=== PATIENT | male | born 1935 | race Caucasian/White ===

== ENCOUNTER 2020-08-19 15:04 | Inpatient (IN) | payer MEDICARE ==
[~2020-08-19] VITALS: Ht 182.9 cm; Wt 80.1 kg
[~2020-08-19 15:04] MED LIST: atropine 0.1mg/ml 10ml syringe ONE; calcium chloride 100 MG/1 ML inj IV ONE; dextrose 50%-water 50ml dispensing syringe IV ONE; epiNEPHrine 0.1mg/ml 10ml syringe ONE
--- NOTE | 2020-08-19 15:18 | NUR ---
PT'S - KYM DIETRICH: [phone] (HOME); [phone] (CELL)
[2020-08-19 16:15] LABS: BASOPHILS % (AUTO) 0.4 % (0-1); EOSINOPHILS # (AUTO) 0.1 X10'3 (0-0.9); EOSINOPHILS % (AUTO) 0.5 % (0-6); HEMATOCRIT 35.6 % (42.0-52.0); HEMOGLOBIN 11.8 g/dl (14.0-17.9); LYMPHOCYTES # (AUTO) 0.9 X10'3 (1.1-4.8); LYMPHOCYTES % (AUTO) 7.3 % (21-51); MEAN CORPUSCULAR HEMOGLOBIN 30.3 PG (27.0-31.0); MEAN CORPUSCULAR HGB CONC 33.1 g/dL (33.0-36.5); MEAN CORPUSCULAR VOLUME 91.6 FL (78-98); MEAN PLATELET VOLUME 6.9 FL (7.4-10.4); MONOCYTES # (AUTO) 1.5 X10'3 (0-0.9); MONOCYTES % (AUTO) 11.6 % (2-12); NEUTROPHILS # (AUTO) 10.4 X10'3 (1.8-7.7); NEUTROPHILS % (AUTO) 80.2 % (42-75); PLATELET COUNT 339 X10'3 (140-440); RED BLOOD COUNT 3.89 X10'6 (4.70-6.10); RED CELL DISTRIBUTION WIDTH 13.8 % (11.5-14.5); WHITE BLOOD COUNT 12.9 X10'3 (4.5-11.0)
[2020-08-19 16:23] LABS: ALANINE AMINOTRANSFERASE 94 U/L (12-78); ALBUMIN 2.8 G/DL (3.4-5.0); ALBUMIN/GLOBULIN RATIO 0.7 (1.1-1.5); ALKALINE PHOSPHATASE 186 IU/L (46-116); ANION GAP 5 (8-16); ASPARTATE AMINO TRANSFERASE 55 U/L (10-37); BILIRUBIN,TOTAL 0.4 MG/DL (0.1-1.0); BLOOD UREA NITROGEN 25 MG/DL (7-18); BUN/CREATININE RATIO 19.1 (5.4-32.0); CALCIUM 8.8 MG/DL (8.5-10.1); CHLORIDE 98 MMOL/L (99-107); CREATININE 1.31 MG/DL (0.60-1.10); GLUCOSE 205 MG/DL (70-104); POTASSIUM 4.7 MMOL/L (3.5-5.1); SODIUM 132 MMOL/L (135-145); TOTAL CARBON DIOXIDE 29.5 MMOL/L (24-32); eGFR 52 ML/MIN
[2020-08-19] MEDS ORDERED: CefTRIAXone 2gm/D5W 50ml BAG 50 ML IV ONE (17:10)
[2020-08-19] MEDS ORDERED: heparin 10,000 units/1 ML INJ IV ONE ×2 (17:10→21:30)
[2020-08-19] MEDS ORDERED: dexamethasone sod phosphate 10mg/ml inj IV STA (17:18)
[2020-08-19] MEDS ORDERED: azithromycin/NS 500mg/250ml 250 ML IV ONE (17:20)
[2020-08-19] MEDS ORDERED: METF-950 PO (17:20)
[2020-08-19] MEDS ORDERED: BENA20TA82 PO (17:20)
[2020-08-19] MEDS ORDERED: ALBU6.7H9 IH (17:20)
[2020-08-19] MEDS ORDERED: FURO20TA4 PO (17:20)
[2020-08-19] MEDS ORDERED: APIX5TAB3 PO (17:20)
[2020-08-19] MEDS ORDERED: SIMV-45 PO (17:20)
[2020-08-19] MEDS ORDERED: diltiazem 5mg/ml 5ml inj. IV ONE (17:40)
[2020-08-19 18:01] LABS: PARTIAL THROMBOPLASTIN TIME 33 SECONDS (22-32)
[2020-08-19 18:20] LABS: C-REACTIVE PROTEIN 16.07 MG/DL (0.0-0.5); LACTATE DEHYDROGENASE 409 U/L (85-227)
[2020-08-19 18:23] LABS: FERRITIN 373 NG/ML (26-388)
[2020-08-19] MEDS: heparin 10,000 units/1 ML INJ IV PRN (19:09)
[2020-08-19] MEDS: heparin 25,000 UNIT/250ml bag 250 ML IV SCH (19:10)
[2020-08-19 19:19] LABS: D-DIMER 4.93 MG/L FEU (0-0.50)
[2020-08-19] MEDS ORDERED: iohexol 350MG/ML 100ml bottle IV ONE (19:36)
[2020-08-19] MEDS: MESSAGE TO NURSING PO SCH (19:37)
[2020-08-19] MEDS ORDERED: temazepam 15mg capsule PO PRN (21:00)
[2020-08-19] MEDS ORDERED: magnesium 2GM in 50ml NS 50 ML IV PRN (21:15)
[2020-08-19] MEDS ORDERED: potassium Cl 20 mEq SR tablet PO PRN ×2 (21:15)
[2020-08-19] MEDS ORDERED: magnesium 4gm in 100ml NS 100 ML IV PRN (21:15)
[2020-08-19] MEDS ORDERED: potassium CL 10mEq/100ml bag 100 ML IV PRN ×2 (21:15)
[2020-08-19] MEDS ORDERED: acetaminophen 325mg tablet PO PRN ×2 (21:15)
[2020-08-19] MEDS ORDERED: HYDROcodone/acetaminophen 10/325mg tab PO PRN (21:15)
[2020-08-19] MEDS ORDERED: magnesium hydroxide 30ml (MOM) UD suspension PO PRN (21:15)
[2020-08-19] MEDS ORDERED: ondansetron/PF 4mg/2ml inj IV PRN (21:15)
[2020-08-19] MEDS ORDERED: HYDROcodone/acetaminophen 5mg/325mg tablet PO PRN (21:15)
[2020-08-19] MEDS ORDERED: magnesium Cl slow-release 64mg tablet PO PRN (21:15)
[2020-08-19] MEDS ORDERED: bisacodyl 10mg suppository rectal RC PRN (21:15)
[2020-08-19] MEDS ORDERED: morphine 2 MG/ML inj. syringe IV PRN ×2 (21:15)
[2020-08-19] MEDS ORDERED: heparin 25,000 UNIT/250ml bag 250 ML IV SCH (21:30)
[2020-08-19] MEDS ORDERED: heparin 10,000 units/1 ML INJ IV PRN (21:30)
[2020-08-19] MEDS: normal saline 1000ml 1,000 ML IV SCH (22:36)
[2020-08-19 22:50] LABS: HIV ANTIBODY 1&2 RAPID NON-REACTIVE (Neg)
[2020-08-20 02:00] VITALS: BP 110/66
[2020-08-20] MEDS: heparin 25,000 UNIT/250ml bag 250 ML IV SCH ×3 (02:40→17:04)
[2020-08-20] MEDS: heparin 10,000 units/1 ML INJ IV PRN ×2 (02:41→16:42)
[2020-08-20 04:35] LABS: BASOPHILS % (AUTO) 0.3 % (0-1); EOSINOPHILS % (AUTO) 0 % (0-6); HEMATOCRIT 29.8 % (42.0-52.0); HEMOGLOBIN 9.9 g/dl (14.0-17.9); LYMPHOCYTES # (AUTO) 0.5 X10'3 (1.1-4.8); LYMPHOCYTES % (AUTO) 6.2 % (21-51); MEAN CORPUSCULAR HEMOGLOBIN 30.2 PG (27.0-31.0); MEAN CORPUSCULAR HGB CONC 33.1 g/dL (33.0-36.5); MEAN CORPUSCULAR VOLUME 91.3 FL (78-98); MONOCYTES # (AUTO) 0.6 X10'3 (0-0.9); MONOCYTES % (AUTO) 7.3 % (2-12); NEUTROPHILS # (AUTO) 6.6 X10'3 (1.8-7.7); NEUTROPHILS % (AUTO) 86.2 % (42-75); PLATELET COUNT 262 X10'3 (140-440); RED BLOOD COUNT 3.26 X10'6 (4.70-6.10); RED CELL DISTRIBUTION WIDTH 13.9 % (11.5-14.5); WHITE BLOOD COUNT 7.7 X10'3 (4.5-11.0)
[2020-08-20 04:51] LABS: ALANINE AMINOTRANSFERASE 67 U/L (12-78); ALBUMIN 2.1 G/DL (3.4-5.0); ALBUMIN/GLOBULIN RATIO 0.6 (1.1-1.5); ALKALINE PHOSPHATASE 147 IU/L (46-116); ANION GAP 7 (8-16); ASPARTATE AMINO TRANSFERASE 29 U/L (10-37); BILIRUBIN,TOTAL 0.2 MG/DL (0.1-1.0); BLOOD UREA NITROGEN 23 MG/DL (7-18); BUN/CREATININE RATIO 20.7 (5.4-32.0); CALCIUM 7.4 MG/DL (8.5-10.1); CHLORIDE 103 MMOL/L (99-107); CREATININE 1.11 MG/DL (0.60-1.10); GLUCOSE 294 MG/DL (70-104); POTASSIUM 4.6 MMOL/L (3.5-5.1); SODIUM 135 MMOL/L (135-145); TOTAL CARBON DIOXIDE 24.9 MMOL/L (24-32); TOTAL PROTEIN 5.4 G/DL (6.4-8.2); eGFR 63 ML/MIN
[2020-08-20 04:53] LABS: CHOLESTEROL 80 MG/DL (0-200); HDL CHOLESTEROL 27 MG/DL (35-60); LDL CHOLESTEROL 46 MG/DL (50-100); MAGNESIUM 1.8 MG/DL (1.5-2.4); TRIGLYCERIDES 46 MG/DL (20-135)
--- NOTE | 2020-08-20 06:58 | NUR ---
Patient in room PCU 3020. I have received report from King ROCHE and had the opportunity to ask questions and assume patient care.
--- NOTE | 2020-08-20 07:02 | NUR ---
Problems reprioritized. Patient report given, questions answered & plan of care reviewed. Safety measures in place, bed in low and locked position. Call light and personal items within reach. Will continue to monitor for remainder of shift.
--- NOTE | 2020-08-20 07:57 | NUR ---
[place] [id number] and has IVF running at 100. No new orders at this time.
[2020-08-20] MEDS: metoprolol tartrate 12.5mg (1/2 tablet) PO SCH ×2 (08:00→20:00)
[2020-08-20] MEDS: K and/or MAG REPLACEMENT MC SCH ×2 (08:00→20:00)
[2020-08-20] MEDS ORDERED: apixaban 5mg tablet PO SCH (08:00)
[2020-08-20] MEDS: atorvastatin 20mg tablet PO SCH (08:55)
[2020-08-20] MEDS: lisinopril 20mg tablet PO SCH (08:55)
[2020-08-20] MEDS: CefTRIAXone/D5W-Rocephin 1gm 50 ML IV SCH (08:55)
[2020-08-20 09:00] VITALS: BP 115/64
[2020-08-20] MEDS: normal saline 1000ml 1,000 ML IV SCH (09:11)
[2020-08-20] MEDS ORDERED: heparin 10,000 units/1 ML INJ IV PRN (09:40)
[2020-08-20] MEDS: MESSAGE TO NURSING PO SCH (10:00)
--- NOTE | 2020-08-20 12:52 | NUR ---
Pt refusing skin check stating his skin is okay.
[2020-08-20] MEDS: mag hydrox/Alum hydrox/simeth 30ml oral suspension PO PRN ×3 (13:32→22:45)
[2020-08-20] MEDS ORDERED: heparin 10,000 units/1 ML INJ IV ONE ×2 (13:45)
[2020-08-20 16:37] VITALS: BP 124/77
[2020-08-20] MEDS: azithromycin/NS 500mg/250ml 250 ML IV SCH (16:51)
--- NOTE | 2020-08-20 18:30 | NUR ---
Patient in room PCU 3020. I have received report from KALEY Rust and had the opportunity to ask questions and assume patient care. Patient resting in bed, no signs of distress. Safety measures in place, bed in low and locked position. Call light and personal items within reach. Will continue to monitor throughout shift.
--- NOTE | 2020-08-20 18:43 | NUR ---
Problems reprioritized. Patient report given, questions answered & plan of care reviewed with King ROCHE.
[2020-08-20] MEDS ORDERED: dextrose 50%-water 50ml dispensing syringe IV PRN ×2 (20:45)
[2020-08-20] MEDS ORDERED: dextrose ORAL solution 15 GM/59 ML bottle PO PRN ×2 (20:45)
[2020-08-20] MEDS ORDERED: glucagon, human recombinant 1mg kit SUBCUT PRN (20:45)
[2020-08-20] MEDS ORDERED: MESSAGE TO PHARMACY PO ONE (20:45)
[2020-08-20 22:00] VITALS: BP 101/54
[2020-08-20 22:06] LABS: HEMOGLOBIN A1C 7.7 % (4.5-6.2)
[2020-08-20] MEDS: lactobacillus rhamnosus 10,000 MMU CELLS/CAPSULE PO SCH (22:19)
[2020-08-20] MEDS: insulin glargine (Lantus) pen - multi-dose SQ SCH (22:48)
--- NOTE | 2020-08-20 23:44 | NUR ---
Ptt 56, therapeutic level, no rate change.
[2020-08-21 02:00] VITALS: BP 113/80
--- NOTE | 2020-08-21 03:29 | NUR ---
Paged RT. RE James Shaffer RM [id number]. Patient requesting PRN breathing treatment.
[2020-08-21] MEDS: heparin 25,000 UNIT/250ml bag 250 ML IV SCH ×2 (05:17→08:05)
[2020-08-21 06:00] VITALS: BP 110/50
[2020-08-21 06:47] LABS: BASOPHILS % (AUTO) 0.4 % (0-1); EOSINOPHILS # (AUTO) 0.1 X10'3 (0-0.9); EOSINOPHILS % (AUTO) 1.1 % (0-6); HEMATOCRIT 31.7 % (42.0-52.0); HEMOGLOBIN 10.6 g/dl (14.0-17.9); LYMPHOCYTES # (AUTO) 1.6 X10'3 (1.1-4.8); LYMPHOCYTES % (AUTO) 13.8 % (21-51); MEAN CORPUSCULAR HEMOGLOBIN 30.5 PG (27.0-31.0); MEAN CORPUSCULAR HGB CONC 33.4 g/dL (33.0-36.5); MEAN CORPUSCULAR VOLUME 91.3 FL (78-98); MEAN PLATELET VOLUME 7.2 FL (7.4-10.4); MONOCYTES # (AUTO) 1.2 X10'3 (0-0.9); MONOCYTES % (AUTO) 10.2 % (2-12); NEUTROPHILS # (AUTO) 8.7 X10'3 (1.8-7.7); NEUTROPHILS % (AUTO) 74.5 % (42-75); PLATELET COUNT 344 X10'3 (140-440); RED BLOOD COUNT 3.47 X10'6 (4.70-6.10); RED CELL DISTRIBUTION WIDTH 13.9 % (11.5-14.5); WHITE BLOOD COUNT 11.7 X10'3 (4.5-11.0)
--- NOTE | 2020-08-21 06:56 | NUR ---
Problems reprioritized. Patient report given, questions answered & plan of care reviewed with KALEY Smith. Patient resting in bed. No concerns. Heparin gtt running at 1500. Safety measures in place, bed in low and locked position. Call light and personal items within reach. Will continue to monitor for remainder of shift.
[2020-08-21 07:04] LABS: ALANINE AMINOTRANSFERASE 73 U/L (12-78); ALBUMIN 2.4 G/DL (3.4-5.0); ALBUMIN/GLOBULIN RATIO 0.6 (1.1-1.5); ALKALINE PHOSPHATASE 153 IU/L (46-116); ANION GAP 8 (8-16); ASPARTATE AMINO TRANSFERASE 32 U/L (10-37); BILIRUBIN,TOTAL 0.2 MG/DL (0.1-1.0); BLOOD UREA NITROGEN 26 MG/DL (7-18); BUN/CREATININE RATIO 22.6 (5.4-32.0); CALCIUM 8.5 MG/DL (8.5-10.1); CHLORIDE 103 MMOL/L (99-107); CREATININE 1.15 MG/DL (0.60-1.10); GLUCOSE 205 MG/DL (70-104); MAGNESIUM 2.2 MG/DL (1.5-2.4); POTASSIUM 5.1 MMOL/L (3.5-5.1); SODIUM 139 MMOL/L (135-145); TOTAL CARBON DIOXIDE 28.3 MMOL/L (24-32); TOTAL PROTEIN 6.1 G/DL (6.4-8.2); eGFR 61 ML/MIN
[2020-08-21] MEDS: lactobacillus rhamnosus 10,000 MMU CELLS/CAPSULE PO SCH ×2 (07:36→19:35)
[2020-08-21] MEDS: metoprolol tartrate 12.5mg (1/2 tablet) PO SCH ×2 (07:37→19:36)
[2020-08-21] MEDS: DEXAMETHASONE 6 MG TABLET PO SCH (07:37)
[2020-08-21] MEDS: atorvastatin 20mg tablet PO SCH (07:37)
[2020-08-21] MEDS: CefTRIAXone/D5W-Rocephin 1gm 50 ML IV SCH (07:38)
[2020-08-21] MEDS: heparin 10,000 units/1 ML INJ IV PRN ×2 (07:50→22:29)
[2020-08-21] MEDS: K and/or MAG REPLACEMENT MC SCH ×2 (08:00→20:00)
[2020-08-21] MEDS: mag hydrox/Alum hydrox/simeth 30ml oral suspension PO PRN (09:10)
[2020-08-21] MEDS: insulin Lispro (HumaLOG) vial - multi-dose SQ SCH ×3 (09:19→20:30)
[2020-08-21] MEDS: MESSAGE TO NURSING PO SCH (10:00)
--- NOTE | 2020-08-21 10:01 | NUR ---
DM consult: A1c 7.7%. DM ed deferred d/t well controlled DM considering geriatric age, will follow up for initial assessment on 08/24. Addendum: 08/21/20 at [address] Amended: Links added. Addendum: 08/21/20 at [address] I have reviewed and agree with note by Cycle Specialist. Bev Amor RD
[2020-08-21 11:00] VITALS: BP 125/59
[2020-08-21] MEDS: lisinopril 20mg tablet PO SCH (12:29)
[2020-08-21 15:00] VITALS: BP 129/48
--- NOTE | 2020-08-21 16:20 | NUR ---
Patient in room PCU 3020. I have received report from King ROCHE and had the opportunity to ask questions and assume patient care.
[2020-08-21] MEDS: azithromycin/NS 500mg/250ml 250 ML IV SCH (16:21)
--- NOTE | 2020-08-21 17:29 | NUR ---
PAGER ID: [phone] MESSAGE: Re: Jam Marks. Room: 3020. Pt takes famotidine 20mg PO every morning. Can I order protonix PO 20mg daily for Pt? -[facility] #[id number] Dr. Patrick paged concerning Pt's med rec.
[2020-08-21 17:30] VITALS: BP 131/75
--- NOTE | 2020-08-21 18:27 | NUR ---
Problems reprioritized. Patient report given, questions answered & plan of care reviewed with Celina ROCHE.
--- NOTE | 2020-08-21 18:44 | NUR ---
Patient in room PCU 3020. I have received report from KALEY Smith and had the opportunity to ask questions and assume patient care.
[2020-08-21] MEDS: insulin glargine (Lantus) pen - multi-dose SQ SCH (22:27)
[2020-08-21 22:39] VITALS: BP 140/76
[2020-08-22 02:10] VITALS: BP 138/76
--- NOTE | 2020-08-22 04:24 | NUR ---
Pt c/o constant dry cough. Has not been sleeping well tonight. Paged Dr. Calvert and received order for Tessalon 200mg PO TID. Order placed.
[2020-08-22] MEDS: benzonatate 100mg capsule PO PRN ×2 (05:37→20:14)
[2020-08-22 05:40] VITALS: BP 158/76
[2020-08-22 06:00] VITALS: BP 125/67
[2020-08-22 06:07] LABS: BASOPHILS % (AUTO) 0.3 % (0-1); EOSINOPHILS % (AUTO) 0 % (0-6); HEMATOCRIT 31.2 % (42.0-52.0); HEMOGLOBIN 10.4 g/dl (14.0-17.9); LYMPHOCYTES # (AUTO) 1.2 X10'3 (1.1-4.8); LYMPHOCYTES % (AUTO) 8.5 % (21-51); MEAN CORPUSCULAR HEMOGLOBIN 30.1 PG (27.0-31.0); MEAN CORPUSCULAR HGB CONC 33.2 g/dL (33.0-36.5); MEAN CORPUSCULAR VOLUME 90.5 FL (78-98); MEAN PLATELET VOLUME 7.3 FL (7.4-10.4); MONOCYTES # (AUTO) 1.5 X10'3 (0-0.9); NEUTROPHILS # (AUTO) 11.3 X10'3 (1.8-7.7); NEUTROPHILS % (AUTO) 80.2 % (42-75); PLATELET COUNT 345 X10'3 (140-440); RED BLOOD COUNT 3.45 X10'6 (4.70-6.10); WHITE BLOOD COUNT 14.1 X10'3 (4.5-11.0)
--- NOTE | 2020-08-22 06:25 | NUR ---
Problems reprioritized. Patient report given, questions answered & plan of care reviewed with KALEY Smith.
--- NOTE | 2020-08-22 06:25 | NUR ---
Patient in room PCU 3020. I have received report from Celina ROCHE and had the opportunity to ask questions and assume patient care.
[2020-08-22 06:26] LABS: ALANINE AMINOTRANSFERASE 69 U/L (12-78); ALBUMIN 2.5 G/DL (3.4-5.0); ALBUMIN/GLOBULIN RATIO 0.7 (1.1-1.5); ALKALINE PHOSPHATASE 151 IU/L (46-116); ANION GAP 6 (8-16); ASPARTATE AMINO TRANSFERASE 27 U/L (10-37); BILIRUBIN,TOTAL 0.2 MG/DL (0.1-1.0); BLOOD UREA NITROGEN 27 MG/DL (7-18); BUN/CREATININE RATIO 24.3 (5.4-32.0); CHLORIDE 106 MMOL/L (99-107); CREATININE 1.11 MG/DL (0.60-1.10); GLUCOSE 91 MG/DL (70-104); MAGNESIUM 2.5 MG/DL (1.5-2.4); POTASSIUM 4.7 MMOL/L (3.5-5.1); SODIUM 140 MMOL/L (135-145); TOTAL CARBON DIOXIDE 27.6 MMOL/L (24-32); TOTAL PROTEIN 6.1 G/DL (6.4-8.2); eGFR 63 ML/MIN
[2020-08-22] MEDS: CefTRIAXone/D5W-Rocephin 1gm 50 ML IV SCH (08:00)
[2020-08-22] MEDS: lactobacillus rhamnosus 10,000 MMU CELLS/CAPSULE PO SCH ×2 (08:00→20:19)
[2020-08-22] MEDS: K and/or MAG REPLACEMENT MC SCH ×2 (08:00→20:00)
[2020-08-22] MEDS: pantoprazole 40mg Tablet.DR PO SCH (08:01)
[2020-08-22] MEDS: DEXAMETHASONE 6 MG TABLET PO SCH (08:01)
[2020-08-22] MEDS: atorvastatin 20mg tablet PO SCH (08:01)
[2020-08-22] MEDS: metoprolol tartrate 12.5mg (1/2 tablet) PO SCH ×2 (08:01→20:19)
[2020-08-22] MEDS: lisinopril 20mg tablet PO SCH (08:01)
[2020-08-22] MEDS: heparin 25,000 UNIT/250ml bag 250 ML IV SCH (08:13)
[2020-08-22] MEDS: insulin Lispro (HumaLOG) vial - multi-dose SQ SCH ×3 (09:29→20:08)
[2020-08-22] MEDS: apixaban 5mg tablet PO SCH ×2 (11:06→20:19)
[2020-08-22 11:39] LABS: D-DIMER 2.27 MG/L FEU (0-0.50)
--- NOTE | 2020-08-22 12:19 | NUR ---
Spoke with Salvador Nielsen concerning Pt's COVID test, which is negative. Pt can be taken off of isolation per Dr. Swartz.
--- NOTE | 2020-08-22 13:02 | NUR ---
Per Dr. Gaston; Eliquis 5mg PO administered at 1106, Heparin drip turned off at 1230
[2020-08-22 15:00] VITALS: BP 142/64
[2020-08-22] MEDS: azithromycin/NS 500mg/250ml 250 ML IV SCH (17:07)
[2020-08-22 18:00] VITALS: BP 123/67
--- NOTE | 2020-08-22 18:30 | NUR ---
Problems reprioritized. Patient report given, questions answered & plan of care reviewed with Radha.
--- NOTE | 2020-08-22 18:35 | NUR ---
Patient in room PCU 3020. I have received report from Luis ROCHE and had the opportunity to ask questions and assume patient care.
[2020-08-22 22:00] VITALS: BP 138/66
[2020-08-22] MEDS: insulin glargine (Lantus) pen - multi-dose SQ SCH (22:16)
[2020-08-23] VITALS (7 sets, daily range): BP systolic 113–171; BP diastolic 48–88
--- NOTE | 2020-08-23 04:16 | NUR ---
3020A Jam Marks. Can I get a PRN breathing treatment for this patient? He is SOB. Thank you. Valerie ROCHE Ext [phone]
[2020-08-23] MEDS: ipratropium/albuterol 3ml nebule NEB PRN ×4 (04:42→20:00)
--- NOTE | 2020-08-23 06:21 | NUR ---
Problems reprioritized. Patient report given, questions answered & plan of care reviewed with Luis ROCHE.
--- NOTE | 2020-08-23 06:25 | NUR ---
Patient in room PCU 3020. I have received report from Radha ROCHE and had the opportunity to ask questions and assume patient care.
[2020-08-23 06:33] LABS: BASOPHILS % (AUTO) 0.3 % (0-1); EOSINOPHILS % (AUTO) 0.2 % (0-6); HEMOGLOBIN 11.4 g/dl (14.0-17.9); LYMPHOCYTES # (AUTO) 1.2 X10'3 (1.1-4.8); LYMPHOCYTES % (AUTO) 7.1 % (21-51); MEAN CORPUSCULAR HEMOGLOBIN 30.4 PG (27.0-31.0); MEAN CORPUSCULAR HGB CONC 33.6 g/dL (33.0-36.5); MEAN CORPUSCULAR VOLUME 90.5 FL (78-98); MEAN PLATELET VOLUME 7.2 FL (7.4-10.4); MONOCYTES # (AUTO) 1.7 X10'3 (0-0.9); MONOCYTES % (AUTO) 10.2 % (2-12); NEUTROPHILS # (AUTO) 13.9 X10'3 (1.8-7.7); NEUTROPHILS % (AUTO) 82.2 % (42-75); PLATELET COUNT 332 X10'3 (140-440); RED BLOOD COUNT 3.76 X10'6 (4.70-6.10); WHITE BLOOD COUNT 16.9 X10'3 (4.5-11.0)
[2020-08-23 06:46] LABS: ALANINE AMINOTRANSFERASE 58 U/L (12-78); ALBUMIN 2.7 G/DL (3.4-5.0); ALBUMIN/GLOBULIN RATIO 0.7 (1.1-1.5); ALKALINE PHOSPHATASE 150 IU/L (46-116); ANION GAP 9 (8-16); ASPARTATE AMINO TRANSFERASE 19 U/L (10-37); BILIRUBIN,TOTAL 0.3 MG/DL (0.1-1.0); BLOOD UREA NITROGEN 25 MG/DL (7-18); BUN/CREATININE RATIO 22.1 (5.4-32.0); CHLORIDE 103 MMOL/L (99-107); CREATININE 1.13 MG/DL (0.60-1.10); GLUCOSE 79 MG/DL (70-104); MAGNESIUM 2.2 MG/DL (1.5-2.4); POTASSIUM 4.1 MMOL/L (3.5-5.1); SODIUM 141 MMOL/L (135-145); TOTAL CARBON DIOXIDE 29.3 MMOL/L (24-32); TOTAL PROTEIN 6.7 G/DL (6.4-8.2); eGFR 62 ML/MIN
--- NOTE | 2020-08-23 07:00 | NUR ---
Pt's morning blood sugar 69. pt not symptomatic. White juice administered. Will recheck blood sugar in 20 minutes.
[2020-08-23] MEDS: pantoprazole 40mg Tablet.DR PO SCH (07:30)
[2020-08-23] MEDS: lactobacillus rhamnosus 10,000 MMU CELLS/CAPSULE PO SCH ×3 (07:30→22:27)
[2020-08-23] MEDS: metoprolol tartrate 12.5mg (1/2 tablet) PO SCH ×3 (07:30→22:27)
[2020-08-23] MEDS: atorvastatin 20mg tablet PO SCH (07:30)
[2020-08-23] MEDS: CefTRIAXone/D5W-Rocephin 1gm 50 ML IV SCH (07:30)
[2020-08-23] MEDS: apixaban 5mg tablet PO SCH ×3 (07:30→22:27)
--- NOTE | 2020-08-23 07:30 | NUR ---
Pt's rechecked blood sugar is 86.
[2020-08-23] MEDS: K and/or MAG REPLACEMENT MC SCH ×2 (08:00→20:00)
[2020-08-23] MEDS: lisinopril 20mg tablet PO SCH (08:00)
[2020-08-23] MEDS: insulin Lispro (HumaLOG) vial - multi-dose SQ SCH ×2 (08:45→14:22)
[2020-08-23] MEDS ORDERED: furosemide 10 MG/1 ML 10ml inj IV ONE ×2 (09:40→14:05)
--- NOTE | 2020-08-23 12:54 | NUR ---
promotional table spacer PAGER ID: [phone] MESSAGE: Re: Jam Marks. Room: 3020. Pt on 15L high flow NC sating 83% and symptomatic. RT paged and getting bipap.for Pt. -[facility] #[id number] Dr. Gaston paged concerning Pt's low sat.
--- NOTE | 2020-08-23 13:02 | NUR ---
Pt's sats dropping into low 80's while on 15L high flow NC. Dr. Gaston paged and made aware. New orders to get ABG and start Pt on Bipap. RT in room adjusting bipap settings for pt. Will continue to monitor.
[2020-08-23 13:36] LABS: ABG OXYGEN SATURATION 99.4 % (94-97); ABG PCO2 (T) 39.9 mmHg (35.0-48.0); ABG PO2 (T) 262.8 mmHg (75.0-100.0); ALLEN'S TEST POSITIVE; FMetHb 0.2 % (0.0-1.5); FO2Hb 99.2 % (94-97); RESPIRATORY RATE 16 b/min; TIDAL VOLUME 1148 mL; TOTAL HEMOGLOBIN 12.9 G/dl (14.0-18.0)
[2020-08-23 16:45] LABS: ABG BASE EXCESS 3.7 mmol/L (-2.0-2.0); ABG HCO3 27.3 mmol/L (22.0-26.0); ABG PCO2 (T) 37.7 mmHg (35.0-48.0); ABG PO2 (T) 94.6 mmHg (75.0-100.0); ALLEN'S TEST POSITIVE; FCOHb 0.3 % (0.0-3.9); FMetHb 0.2 % (0.0-1.5); FO2Hb 96.5 % (94-97); RESPIRATORY RATE 16 b/min; TIDAL VOLUME 767 mL; TOTAL HEMOGLOBIN 12.5 G/dl (14.0-18.0)
[2020-08-23] MEDS: azithromycin/NS 500mg/250ml 250 ML IV SCH (17:06)
--- NOTE | 2020-08-23 18:15 | NUR ---
Problems reprioritized. Patient report given, questions answered & plan of care reviewed with Veto ROCHE.
--- NOTE | 2020-08-23 18:30 | NUR ---
Patient in room CICU 2013. I have received report from Luis ROCHE and had the opportunity to ask questions and assume patient care.
--- NOTE | 2020-08-23 19:24 | NUR ---
NOTIFIED PAGER ID: [phone] MESSAGE: 1950, villa Marks- pt has increasing confusion, bipap @60% w/ resp in the mid 50s, spo2 [id number] 90s back and forth, pt repeatedly pulling off bipap. I would like a sitter order, ABG, and an coal grader consult. Dewayne RN [id number]
--- NOTE | 2020-08-23 19:39 | NUR ---
stopped orders ABG, RT notification, pt needs sitter cancled because orders were obtained from screen examiner but they are not covering this pt at this time. hospitalist contacted to attain orders, still waiting hospitalist response.
[2020-08-23] MEDS: furosemide 40mg/4ml inj IV SCH (20:00)
[2020-08-23 20:51] LABS: ABG BASE EXCESS -1.3 mmol/L (-2.0-2.0); ABG HCO3 20.7 mmol/L (22.0-26.0); ABG OXYGEN SATURATION 96.8 % (94-97); ALLEN'S TEST POSITIVE; FCOHb 0.3 % (0.0-3.9); FO2Hb 96.5 % (94-97); PATIENT TEMPERATURE 36.9; RESPIRATORY RATE 16 b/min; TOTAL HEMOGLOBIN 12.2 G/dl (14.0-18.0)
[2020-08-23] MEDS: insulin glargine (Lantus) pen - multi-dose SQ SCH (21:00)
[2020-08-23] MEDS ORDERED: morphine 2 MG/ML inj. syringe IV PRN (21:00)
--- NOTE | 2020-08-23 21:04 | NUR ---
ORDERING 2MG MORPHINE Q4H FOR SOB PER DR ORTEGA
--- NOTE | 2020-08-23 21:19 | NUR ---
HELD LANTUS pt is not eating and is not expected to be able to tonight. morning BS was 69 and current BS is 74, lantus held for safety reasons.
--- NOTE | 2020-08-23 21:40 | NUR ---
Problems reprioritized. Patient report given, questions answered & plan of care reviewed with Tammy ROCHE ICU.
--- NOTE | 2020-08-23 21:45 | NUR ---
I have reviewed Adrianna student RN charting and i agree.
[2020-08-23] MEDS: LORazepam 2 mg/ml vial IV PRN (22:20)
[2020-08-23] MEDS ORDERED: ipratropium/albuterol 3ml nebule NEB SCH (23:00)
--- NOTE | 2020-08-23 23:30 | NUR ---
2199-Patient in room CICU 2012. I have received report from Dewayne RN and had the opportunity to ask questions and assume patient care. 2229-Pt agitated, awake but not answering questions or following commands. On Bipap. Ativan giving, pt pulling on everything. He is unable/will not swallow meds. October [employer] WINDING OPERATOR at bedside. Wrist restraints placed and sitter now at bedside. Donahue and NGT inserted, oral meds given. Pt beginning to calm down, HR and BP elevated, but starting to decrease.
[2020-08-23 23:57] LABS: ALBUMIN 2.9 G/DL (3.4-5.0); ANION GAP 11 (8-16); BLOOD UREA NITROGEN 30 MG/DL (7-18); BUN/CREATININE RATIO 20.4 (5.4-32.0); CHLORIDE 100 MMOL/L (99-107); CREATININE 1.47 MG/DL (0.60-1.10); GLUCOSE 112 MG/DL (70-104); PHOSPHORUS 5.5 MG/DL (2.3-4.5); POTASSIUM 4.4 MMOL/L (3.5-5.1); SODIUM 138 MMOL/L (135-145); TOTAL CARBON DIOXIDE 27.3 MMOL/L (24-32); eGFR 46 ML/MIN
[2020-08-24] VITALS (24 sets, daily range): BP systolic 88–169; BP diastolic 46–97
[2020-08-24 01:53] LABS: BASOPHILS # (AUTO) 0.1 X10'3 (0-0.2); BASOPHILS % (AUTO) 0.6 % (0-1); EOSINOPHILS % (AUTO) 0 % (0-6); HEMATOCRIT 36.4 % (42.0-52.0); HEMOGLOBIN 12.1 g/dl (14.0-17.9); LYMPHOCYTES # (AUTO) 0.8 X10'3 (1.1-4.8); LYMPHOCYTES % (AUTO) 3.8 % (21-51); MEAN CORPUSCULAR HEMOGLOBIN 30.2 PG (27.0-31.0); MEAN CORPUSCULAR HGB CONC 33.4 g/dL (33.0-36.5); MEAN CORPUSCULAR VOLUME 90.5 FL (78-98); MEAN PLATELET VOLUME 7.2 FL (7.4-10.4); MONOCYTES # (AUTO) 2.2 X10'3 (0-0.9); MONOCYTES % (AUTO) 10.4 % (2-12); NEUTROPHILS # (AUTO) 17.9 X10'3 (1.8-7.7); NEUTROPHILS % (AUTO) 85.2 % (42-75); PLATELET COUNT 274 X10'3 (140-440); RED BLOOD COUNT 4.02 X10'6 (4.70-6.10); RED CELL DISTRIBUTION WIDTH 14.2 % (11.5-14.5)
[2020-08-24 04:05] LABS: CLARITY,URINE CLEAR (Clear); COLOR,URINE YELLOW (Yellow); GLUCOSE, URINE NEGATIVE (Neg); KETONES,URINE NEGATIVE (Neg); LEUKOCYTE ESTERASE ,URINE NEGATIVE (Neg); NITRITES, URINE NEGATIVE (Neg); OCCULT BLOOD,URINE MODERATE (Neg); PH,URINE 5.5 (4.8-8.0); PROTEIN,URINE TRACE mg/dl (Neg); UA COLLECTION TYPE FOLEY CATH; UROBILINOGEN,URINE 0.2 E.U/dL (0.2-1.0)
[2020-08-24 04:14] LABS: BACTERIA,URINE NONE SEEN /HPF (Neg); SQUAMOUS EPITHELIAL CELL,UR NONE SEEN /LPF (FEW); WBC,URINE 0-4 /HPF (0-4)
[2020-08-24 04:15] LABS: MUCUS STRANDS NONE SEEN /LPF (Neg)
--- NOTE | 2020-08-24 06:53 | NUR ---
Problems reprioritized. Patient report given, questions answered & plan of care reviewed with Georgia ROCHE.
[2020-08-24 06:59] LABS: BASOPHILS % (AUTO) 0.2 % (0-1); EOSINOPHILS % (AUTO) 0 % (0-6); HEMATOCRIT 32.2 % (42.0-52.0); HEMOGLOBIN 10.9 g/dl (14.0-17.9); LYMPHOCYTES # (AUTO) 0.6 X10'3 (1.1-4.8); LYMPHOCYTES % (AUTO) 3.6 % (21-51); MEAN CORPUSCULAR HEMOGLOBIN 30.3 PG (27.0-31.0); MEAN CORPUSCULAR HGB CONC 33.7 g/dL (33.0-36.5); MEAN CORPUSCULAR VOLUME 89.9 FL (78-98); MEAN PLATELET VOLUME 7.3 FL (7.4-10.4); MONOCYTES # (AUTO) 1.6 X10'3 (0-0.9); MONOCYTES % (AUTO) 10.1 % (2-12); NEUTROPHILS % (AUTO) 86.1 % (42-75); PLATELET COUNT 224 X10'3 (140-440); RED BLOOD COUNT 3.58 X10'6 (4.70-6.10); RED CELL DISTRIBUTION WIDTH 14.1 % (11.5-14.5); WHITE BLOOD COUNT 16.2 X10'3 (4.5-11.0)
[2020-08-24 07:09] LABS: ALANINE AMINOTRANSFERASE 72 U/L (12-78); ALBUMIN 2.6 G/DL (3.4-5.0); ALBUMIN/GLOBULIN RATIO 0.8 (1.1-1.5); ALKALINE PHOSPHATASE 139 IU/L (46-116); ANION GAP 12 (8-16); ASPARTATE AMINO TRANSFERASE 62 U/L (10-37); BILIRUBIN,TOTAL 0.7 MG/DL (0.1-1.0); BLOOD UREA NITROGEN 33 MG/DL (7-18); CALCIUM 8.6 MG/DL (8.5-10.1); CHLORIDE 103 MMOL/L (99-107); GLUCOSE 114 MG/DL (70-104); PHOSPHORUS 5.4 MG/DL (2.3-4.5); POTASSIUM 4.8 MMOL/L (3.5-5.1); SODIUM 141 MMOL/L (135-145); TOTAL CARBON DIOXIDE 26.3 MMOL/L (24-32); eGFR 45 ML/MIN
[2020-08-24] MEDS: CefTRIAXone/D5W-Rocephin 1gm 50 ML IV SCH (07:24)
[2020-08-24] MEDS: lactobacillus rhamnosus 10,000 MMU CELLS/CAPSULE PO SCH ×2 (07:25→20:38)
[2020-08-24] MEDS: apixaban 5mg tablet PO SCH ×2 (07:25→20:38)
[2020-08-24] MEDS: metoprolol tartrate 12.5mg (1/2 tablet) PO SCH ×2 (07:25→20:39)
[2020-08-24] MEDS: furosemide 40mg/4ml inj IV SCH ×2 (07:25→20:39)
[2020-08-24] MEDS: atorvastatin 20mg tablet PO SCH (07:25)
[2020-08-24] MEDS: pantoprazole 40mg Tablet.DR PO SCH (07:25)
[2020-08-24 07:28] LABS: PLATELET ESTIMATE NORMAL; POIKILOCYTOSIS FEW; POLYCHROMASIA FEW; TOTAL CELLS COUNTED 100
[2020-08-24] MEDS: lisinopril 20mg tablet PO SCH (07:38)
[2020-08-24] MEDS: LORazepam 2 mg/ml vial IV PRN (08:07)
[2020-08-24] MEDS: ipratropium/albuterol 3ml nebule NEB SCH ×3 (09:00→21:20)
[2020-08-24] MEDS ORDERED: amiodarone 150mg/dext, iso-os 100 ML IV ONE (11:00)
[2020-08-24] MEDS: amiodarone/D5 360MG/200ML BAG 200 ML IV SCH ×3 (11:39→23:08)
--- NOTE | 2020-08-24 14:49 | NUR ---
Initial: Pt admit DX acute respiratory distress, PNA, NSTEMI, and acute PE per MD note. S/p rapid response last night currently NPO w/ R NG in place. Pt prior PO 75-100% avg carb controlled meals meeting needs. LBM 08/22. Will monitor for diet advancement or nutrition support needs if prolonged NPO. Rec: 1. advance to carb controlled diet as medically indicated; consider WEATHER FORCASTER BSS IF concerns for aspiration 2. routine bowel care 3. weekly wts Addendum: 08/24/20 at [address] Amended: Links added.
[2020-08-24] MEDS: azithromycin/NS 500mg/250ml 250 ML IV SCH ×2 (16:40→16:44)
--- NOTE | 2020-08-24 18:30 | NUR ---
Patient in room CICU 2013. I have received report from Georgia ROCHE and had the opportunity to ask questions and assume patient care.
[2020-08-24] MEDS: K and/or MAG REPLACEMENT MC SCH (19:58)
[2020-08-24] MEDS: insulin glargine (Lantus) pen - multi-dose SQ SCH (20:55)
[2020-08-24] MEDS: insulin Lispro (HumaLOG) vial - multi-dose SQ SCH (20:56)
[2020-08-25] VITALS (27 sets, daily range): BP systolic 70–157; BP diastolic 36–91
[2020-08-25] MEDS: insulin Lispro (HumaLOG) vial - multi-dose SQ SCH ×3 (02:30→15:57)
--- NOTE | 2020-08-25 06:43 | NUR ---
Problems reprioritized. Patient report given, questions answered & plan of care reviewed with Shanon ROCHE.
[2020-08-25 06:45] LABS: MAGNESIUM 2.5 MG/DL (1.5-2.4)
[2020-08-25 06:57] LABS: BASOPHILS % (AUTO) 0.1 % (0-1); EOSINOPHILS % (AUTO) 0 % (0-6); HEMATOCRIT 36.4 % (42.0-52.0); LYMPHOCYTES # (AUTO) 1.1 X10'3 (1.1-4.8); LYMPHOCYTES % (AUTO) 5.8 % (21-51); MEAN CORPUSCULAR HEMOGLOBIN 29.5 PG (27.0-31.0); MEAN CORPUSCULAR HGB CONC 32.9 g/dL (33.0-36.5); MEAN CORPUSCULAR VOLUME 89.5 FL (78-98); MONOCYTES # (AUTO) 1.7 X10'3 (0-0.9); MONOCYTES % (AUTO) 9.2 % (2-12); NEUTROPHILS # (AUTO) 15.5 X10'3 (1.8-7.7); NEUTROPHILS % (AUTO) 84.9 % (42-75); PLATELET COUNT 228 X10'3 (140-440); RED BLOOD COUNT 4.07 X10'6 (4.70-6.10); WHITE BLOOD COUNT 18.3 X10'3 (4.5-11.0)
[2020-08-25 07:14] LABS: ALANINE AMINOTRANSFERASE 1221 U/L (12-78); ALBUMIN 2.6 G/DL (3.4-5.0); ALBUMIN/GLOBULIN RATIO 0.7 (1.1-1.5); ALKALINE PHOSPHATASE 139 IU/L (46-116); ANION GAP 13 (8-16); ASPARTATE AMINO TRANSFERASE 1474 U/L (10-37); BILIRUBIN,TOTAL 0.5 MG/DL (0.1-1.0); BLOOD UREA NITROGEN 61 MG/DL (7-18); BUN/CREATININE RATIO 27.2 (5.4-32.0); CALCIUM 8.4 MG/DL (8.5-10.1); CHLORIDE 100 MMOL/L (99-107); CREATININE 2.24 MG/DL (0.60-1.10); GLUCOSE 215 MG/DL (70-104); PHOSPHORUS 6.5 MG/DL (2.3-4.5); POTASSIUM 4.9 MMOL/L (3.5-5.1); SODIUM 137 MMOL/L (135-145); TOTAL CARBON DIOXIDE 24.1 MMOL/L (24-32); TOTAL PROTEIN 6.1 G/DL (6.4-8.2); eGFR 28 ML/MIN
[2020-08-25] MEDS: K and/or MAG REPLACEMENT MC SCH ×2 (08:00→19:59)
[2020-08-25] MEDS: atorvastatin 20mg tablet PO SCH (08:00)
[2020-08-25] MEDS: lactobacillus rhamnosus 10,000 MMU CELLS/CAPSULE PO SCH (08:00)
[2020-08-25] MEDS: apixaban 5mg tablet PO SCH (08:00)
[2020-08-25 08:35] LABS: ABG BASE EXCESS 0.2 mmol/L (-2.0-2.0); ABG HCO3 23.1 mmol/L (22.0-26.0); ABG OXYGEN SATURATION 95.6 % (94-97); ABG PCO2 (T) 31.7 mmHg (35.0-48.0); ABG PO2 (T) 83.3 mmHg (75.0-100.0); ALLEN'S TEST POSITIVE; FCOHb 0.3 % (0.0-3.9); FLOW 15 L/min; FMetHb 0.2 % (0.0-1.5); FO2Hb 95.1 % (94-97); TOTAL HEMOGLOBIN 12.2 G/dl (14.0-18.0)
[2020-08-25] MEDS ORDERED: normal saline 1000ml 1,000 ML IVB ONE (08:55)
[2020-08-25] MEDS: ipratropium/albuterol 3ml nebule NEB SCH ×3 (09:06→20:10)
[2020-08-25] MEDS: CefTRIAXone/D5W-Rocephin 1gm 50 ML IV SCH (09:34)
[2020-08-25] MEDS: normal saline 1000ml 1,000 ML IV SCH (09:38)
[2020-08-25 10:47] LABS: CLARITY,URINE CLOUDY (Clear); COLOR,URINE YELLOW (Yellow); GLUCOSE, URINE NEGATIVE (Neg); KETONES,URINE NEGATIVE (Neg); LEUKOCYTE ESTERASE ,URINE NEGATIVE (Neg); NITRITES, URINE NEGATIVE (Neg); OCCULT BLOOD,URINE LARGE (Neg); PH,URINE 5.5 (4.8-8.0); PROTEIN,URINE 30 mg/dl (Neg); UROBILINOGEN,URINE 0.2 E.U/dL (0.2-1.0)
[2020-08-25 10:57] LABS: UA COLLECTION TYPE FOLEY CATH
[2020-08-25 11:02] LABS: TOTAL PROTEIN,URINE RANDOM 96.8 MG/DL
[2020-08-25 11:06] LABS: HYALINE CASTS >30 /LPF (NEGATIVE)
[2020-08-25 11:09] LABS: RBC,URINE 50-100 /HPF (0-2); SQUAMOUS EPITHELIAL CELL,UR FEW /LPF (FEW); TRANSITIONAL EPI CELLS,URINE FEW /HPF
[2020-08-25 11:10] LABS: BACTERIA,URINE FEW /HPF (Neg); COARSE GRANULAR CAST 0-3 /LPF (NEGATIVE)
--- NOTE | 2020-08-25 11:13 | NUR ---
TF Consult: Pt TF to start today w/ R NG in place; NPO at this time w/ ALOC. Ammonia 39 results w/ AST/ALT increasing. LBM 08/22. DX community-acquired PNA, acute PE, and respiratory distress not requiring bipap or intubation per MD note. EN recs below; will monitor for EN tolerance. Rec: 1. NGTF per MD using Glucerna 1.2 at 80ml/hr goal; to provide 1920ml volume, 1555ml free water, 2304kcals, and 115g protein. 2. additional water flush per MD; monitor serum Na; 137 today 3. PALB Q /; daily wts 4. routine bowel care 5. advance to carb controlled diet as medically indicated; consider STATE MANAGER BSS IF concerns for aspiration Addendum: 08/25/20 at [address] Amended: Links added.
[2020-08-25 11:19] LABS: AMORPHOUS URATES 3+
[2020-08-25] MEDS ORDERED: acetaminophen 325mg tablet NG PRN ×2 (11:30→11:31)
[2020-08-25] MEDS ORDERED: atorvastatin 20mg tablet NG SCH (11:31)
[2020-08-25] MEDS ORDERED: dextrose ORAL solution 15 GM/59 ML bottle NG PRN ×2 (11:33)
[2020-08-25] MEDS ORDERED: temazepam 15mg capsule NG PRN (11:34)
[2020-08-25 11:38] LABS: UA EOSINOPHILS NO EOS /HPF
[2020-08-25 11:46] LABS: PREALBUMIN 9.9 MG/DL (19-36)
[2020-08-25] MEDS ORDERED: alteplase 100MG inj. 100 ML IV ONE (12:15)
[2020-08-25] MEDS: lactulose 20gm/30ml cup NG SCH ×2 (15:56→19:57)
--- NOTE | 2020-08-25 16:00 | NUR ---
[facility] LINE INFORMATION: REF: [id number] LOT: [id number] EXP: 06/09/2021
[2020-08-25] MEDS: azithromycin/NS 500mg/250ml 250 ML IV SCH (17:47)
[2020-08-25] MEDS: lactobacillus rhamnosus 10,000 MMU CELLS/CAPSULE NG SCH (19:58)
[2020-08-25] MEDS: apixaban 5mg tablet NG SCH (19:59)
[2020-08-25] MEDS: insulin glargine (Lantus) pen - multi-dose SQ SCH (20:19)
[2020-08-25] MEDS: insulin regular, human U-100 3ml vial - multi-dose SQ SCH (20:20)
[2020-08-25] MEDS: LORazepam 2 mg/ml vial IV PRN (21:47)
[2020-08-26] VITALS (18 sets, daily range): BP systolic 81–152; BP diastolic 52–87
[2020-08-26] MEDS: normal saline 1000ml 1,000 ML IV SCH ×2 (01:40→13:23)
[2020-08-26] MEDS: lactulose 20gm/30ml cup NG SCH ×3 (01:40→14:32)
[2020-08-26] MEDS: insulin regular, human U-100 3ml vial - multi-dose SQ SCH ×3 (01:49→14:26)
[2020-08-26 05:20] LABS: BASOPHILS % (AUTO) 0 % (0-1); EOSINOPHILS % (AUTO) 0 % (0-6); HEMATOCRIT 35.5 % (42.0-52.0); HEMOGLOBIN 11.7 g/dl (14.0-17.9); LYMPHOCYTES % (AUTO) 5.2 % (21-51); MEAN CORPUSCULAR HEMOGLOBIN 29.9 PG (27.0-31.0); MEAN CORPUSCULAR HGB CONC 32.8 g/dL (33.0-36.5); MEAN CORPUSCULAR VOLUME 90.9 FL (78-98); MONOCYTES # (AUTO) 1.5 X10'3 (0-0.9); MONOCYTES % (AUTO) 7.9 % (2-12); NEUTROPHILS # (AUTO) 16.8 X10'3 (1.8-7.7); NEUTROPHILS % (AUTO) 86.9 % (42-75); PLATELET COUNT 132 X10'3 (140-440); RED CELL DISTRIBUTION WIDTH 14.3 % (11.5-14.5); WHITE BLOOD COUNT 19.4 X10'3 (4.5-11.0)
[2020-08-26 05:48] LABS: ALBUMIN 2.4 G/DL (3.4-5.0); ALBUMIN/GLOBULIN RATIO 0.7 (1.1-1.5); ALKALINE PHOSPHATASE 161 IU/L (46-116); ANION GAP 9 (8-16); ASPARTATE AMINO TRANSFERASE 543 U/L (10-37); BILIRUBIN,TOTAL 0.6 MG/DL (0.1-1.0); BLOOD UREA NITROGEN 70 MG/DL (7-18); BUN/CREATININE RATIO 34.8 (5.4-32.0); CHLORIDE 107 MMOL/L (99-107); CREATININE 2.01 MG/DL (0.60-1.10); GLUCOSE 154 MG/DL (70-104); MAGNESIUM 2.6 MG/DL (1.5-2.4); PHOSPHORUS 4.9 MG/DL (2.3-4.5); POTASSIUM 3.8 MMOL/L (3.5-5.1); SODIUM 142 MMOL/L (135-145); TOTAL CARBON DIOXIDE 26.3 MMOL/L (24-32); TOTAL PROTEIN 5.8 G/DL (6.4-8.2); eGFR 32 ML/MIN
[2020-08-26 05:49] LABS: ALANINE AMINOTRANSFERASE 1115 U/L (12-78)
--- NOTE | 2020-08-26 06:30 | NUR ---
Received report from KALEY Cottrell
--- NOTE | 2020-08-26 06:37 | NUR ---
Problems reprioritized. Patient report given, questions answered & plan of care reviewed with Shanon ROCHE.
[2020-08-26] MEDS: K and/or MAG REPLACEMENT MC SCH (08:00)
[2020-08-26] MEDS: apixaban 5mg tablet NG SCH (08:12)
[2020-08-26] MEDS: CefTRIAXone/D5W-Rocephin 1gm 50 ML IV SCH (08:12)
[2020-08-26] MEDS: lactobacillus rhamnosus 10,000 MMU CELLS/CAPSULE NG SCH (08:12)
[2020-08-26] MEDS: ipratropium/albuterol 3ml nebule NEB SCH ×2 (09:15→15:00)
[2020-08-26] MEDS: LORazepam 2 mg/ml vial IV PRN (14:31)
[2020-08-26] MEDS: azithromycin/NS 500mg/250ml 250 ML IV SCH (16:51)
[2020-08-26] MEDS ORDERED: LORazepam 2 mg/ml vial IV PRN (17:25)
--- NOTE | 2020-08-26 19:29 | NUR ---
Late Entry: During shift change, MAC, RN and I were in Pt. room at bedside discussing the patient and current plan of care. At approximately 1840 the patient stopped breathing. We called a code blue and CPR was initiated. The code ended at 1855, patient asystolic. See code blue record for details.
--- NOTE | 2020-08-26 19:31 | NUR ---
RN Note -[facility]ed [facility]. Pt released. Reference # [id number]
== END 2020-08-26 21:35 | disposition expired | DRG 871 ==
LOC: ER 15:04 → ED HOLD 21:13 → PCU 3S 08-20 00:10 → CICU 2S 08-23 21:44
PROVIDERS: ADMIT Family Medicine; ATTEND Family Medicine
PROC: B32T1ZZ Computerized Tomography (CT Scan) of Left Pulmonary Artery using Low Osmolar Contrast (ICD-10-PCS; 2020-08-19)
PROC: B3201ZZ Computerized Tomography (CT Scan) of Thoracic Aorta using Low Osmolar Contrast (ICD-10-PCS; 2020-08-19)
PROC: B32S1ZZ Computerized Tomography (CT Scan) of Right Pulmonary Artery using Low Osmolar Contrast (ICD-10-PCS; 2020-08-19)
PROC: 5A09357 Assistance with Respiratory Ventilation, Less than 24 Consecutive Hours, Continuous Positive Airway Pressure (ICD-10-PCS; principal; 2020-08-23)
PROC: 5A0935A Assistance with Respiratory Ventilation, Less than 24 Consecutive Hours, High Flow/Velocity Cannula (ICD-10-PCS; 2020-08-23)
PROC: 5A0935A Assistance with Respiratory Ventilation, Less than 24 Consecutive Hours, High Flow/Velocity Cannula (ICD-10-PCS; 2020-08-24)
PROC: 02HV33Z Insertion of Infusion Device into Superior Vena Cava, Percutaneous Approach (ICD-10-PCS; 2020-08-25)
PROC: B548ZZA Ultrasonography of Superior Vena Cava, Guidance (ICD-10-PCS; 2020-08-25)
PROC: 5A0935A Assistance with Respiratory Ventilation, Less than 24 Consecutive Hours, High Flow/Velocity Cannula (ICD-10-PCS; 2020-08-25)
PROC: 5A12012 Performance of Cardiac Output, Single, Manual (ICD-10-PCS; 2020-08-26)
PROC: 0BH17EZ Insertion of Endotracheal Airway into Trachea, Via Natural or Artificial Opening (ICD-10-PCS; 2020-08-26)
PROC: 0BC17ZZ Extirpation of Matter from Trachea, Via Natural or Artificial Opening (ICD-10-PCS; 2020-08-26)
PROC: 0D9670Z Drainage of Stomach with Drainage Device, Via Natural or Artificial Opening (ICD-10-PCS; 2020-08-26)
PROC: 5A0935A Assistance with Respiratory Ventilation, Less than 24 Consecutive Hours, High Flow/Velocity Cannula (ICD-10-PCS; 2020-08-26)
DX: A41.9 Sepsis, unspecified organism (principal); I26.99 Other pulmonary embolism without acute cor pulmonale; I63.9 Cerebral infarction, unspecified; J18.1 Lobar pneumonia, unspecified organism; J96.00 Acute respiratory failure, unspecified whether with hypoxia or hypercapnia; I21.4 Non-ST elevation (NSTEMI) myocardial infarction; E87.3 Alkalosis; I13.0 Hypertensive heart and chronic kidney disease with heart failure and stage 1 through stage 4 chronic kidney disease, or unspecified chronic kidney disease; I50.20 Unspecified systolic (congestive) heart failure; N17.9 Acute kidney failure, unspecified; I25.10 Atherosclerotic heart disease of native coronary artery without angina pectoris; E11.22 Type 2 diabetes mellitus with diabetic chronic kidney disease; E78.00 Pure hypercholesterolemia, unspecified; E78.5 Hyperlipidemia, unspecified; I35.0 Nonrheumatic aortic (valve) stenosis; D64.9 Anemia, unspecified; I46.9 Cardiac arrest, cause unspecified; I48.91 Unspecified atrial fibrillation; I49.5 Sick sinus syndrome; N18.2 Chronic kidney disease, stage 2 (mild); Z20.828 Contact with and (suspected) exposure to other viral communicable diseases; I25.2 Old myocardial infarction; Z79.01 Long term (current) use of anticoagulants; Z95.0 Presence of cardiac pacemaker; Z95.5 Presence of coronary angioplasty implant and graft; Z79.899 Other long term (current) drug therapy; Z87.891 Personal history of nicotine dependence
CPT/HCPCS: 36415; 36573; 36600; 70450; 71045; 71275; 80048; 80053; 80061; 81001; 82140; 82570; 82728; 82803; 82948; 83036; 83605; 83615; 83735; 83880; 84100; 84134; 84145; 84156; 84300; 84484; 85007; 85018; 85025; 85379; 85384; 85610; 85730; 86140; 86703; 87040; 87070; 87077; 87081; 87207; 87502; 87503; 87635; 93005; 93306; 93308; 94640; 94660; 94760; 94799; 96365; 96375; 99285; C9803; G0378; J0171; J0456; J0461; J0696; J1100; J1644; J1815; J1940; J2060; J2270; J3490; J7030; J8540; Q9967